=== PATIENT | male | born 1940 | race Caucasian/White ===

== ENCOUNTER 2017-01-29 09:33 | Day surgery (SDC) | payer MEDICARE, OTHER ==
--- NOTE | ~2017-01-29 | EGD ---
EGD REPORT [facility] [address] [place] [address] NAME: BUTCH PELAEZ : [birth year] STATUS : [facility]#: [id number] AGE: 76 ADM/REG DATE : 01/29/17 MR#: [id number] REPORT SERV DATE: 01/29/17 DICTATED BY: DATE: REPORT STATUS : Draft TRANSCRIBED BY: [facility] DATE: 01/29/17 [facility] Patient Name: Butch Pelaez Date of : 1940 Attending MD: WINNIE BATEMAN MD Procedure Date No Time: 01/29/2017 Procedure: Colonoscopy Indications: High risk colon cancer surveillance: Personal history adenoma >= 10 mm in size, High risk colon CA surveillance: Personal history multiple (3 or more) adenomas Referring MD: WALLY WELCH MD Medicines: Monitored Anesthesia Care Complications: No immediate complications. Procedure: Pre-Anesthesia Assessment: - ASA Grade Assessment: II - A patient with mild systemic disease. After I obtained informed consent, the scope was passed under direct vision. Throughout the procedure, the patient's blood pressure, pulse, and oxygen saturations were monitored continuously. The [facility] [id number] was introduced through the anus and advanced to the cecum, identified by appendiceal orifice and ileocecal valve. The colonoscopy was performed without difficulty. The patient tolerated the procedure well. The quality of the bowel preparation was good. Findings: The perianal and digital rectal examinations were normal. Multiple small and large-mouthed diverticula were found in the sigmoid colon. A sessile polyp was found in the cecum. The polyp was 10 mm in size and was localized near the appendix, tightly behind the IC valve. The polyp was removed with a cold snare. Resection and retrieval were complete using a submersion technique. I obtained cold biopsies from the margin to assess complete resection. Two sessile polyps were found in the ascending colon and in the cecum. The polyps were diminutive in size. These polyps were removed with a cold biopsy forceps. Resection and retrieval were complete. Two sessile polyps were found at the hepatic flexure. The polyps were diminutive in size. These polyps were removed with a cold biopsy forceps. Resection and retrieval were complete. A sessile polyp was found in the distal transverse colon. The polyp was small in size. The polyp was removed with a cold snare. Resection and retrieval were complete. EGD REPORT [address] [address] NAME: BUTCH PELAEZ : [birth year] STATUS : [facility]#: [id number] AGE: 76 ADM/REG DATE : 01/29/17 MR#: [id number] REPORT SERV DATE: 01/29/17 DICTATED BY: DATE: REPORT STATUS : Draft TRANSCRIBED BY: [employer] DATE: 01/29/17 No other significant abnormalities were identified in a careful examination of the remainder of the colon. There is no endoscopic evidence of inflammation, mass, ulcerations or angioectasia in the entire colon. No additional abnormalities were found on retroflexion. Impression: - Diverticulosis in the sigmoid colon. - One 10 mm polyp in the cecum. Resected and retrieved. - Two diminutive polyps in the ascending colon and in the cecum. Resected and retrieved. - Two diminutive polyps at the hepatic flexure. Resected and retrieved. - One small polyp in the distal transverse colon. Resected and retrieved. Recommendation: - Patient has a contact number available for emergencies. The signs and symptoms of potential delayed complications were discussed with the patient. Return to normal activities tomorrow. Written discharge instructions were provided to the patient. - High fiber diet. - Discharge patient to home. - Continue present medications. - Await pathology results. - Repeat colonoscopy in 2 years for surveillance. Procedure Code(s): --- Professional --- 65109, Colonoscopy, flexible, proximal to splenic flexure; with removal of tumor(s), polyp(s), or other lesion(s) by snare technique 38559, 59, Colonoscopy, flexible, proximal to splenic flexure; with biopsy, single or multiple Diagnosis Code(s): --- Professional --- K57.30, Diverticulosis of large intestine without perforation or abscess without bleeding D12.3, Benign neoplasm of transverse colon D12.2, Benign neoplasm of ascending colon D12.0, Benign neoplasm of cecum Z86.010, Personal history of colonic polyps CPT copyright 2013 [employer]. All rights reserved. The codes documented in this report are preliminary and upon facility practice specialist review may be revised to meet current compliance requirements. EGD REPORT [facility] [address] [address] NAME: BUTCH PELAEZ : [birth year] STATUS : REG [facility] PAT#: [id number] AGE: 76 ADM/REG DATE : 01/29/17 MR#: [id number] REPORT SERV DATE: 01/29/17 DICTATED BY: DATE: REPORT STATUS : Draft TRANSCRIBED BY: [employer] DATE: 01/29/17 WINNIE BATEMAN MD 01/29/2017 12:51 PM This report has been signed electronically. Number of Addenda: 0 Note Initiated On: 01/29/2017 11:36 AM Scope Withdrawal Time 0 hours 34 minutes 11 seconds [address] [id number]
[~2017-01-29 09:33] MED LIST: ASAB PO; CELEBREX2 PO; FLOMAX4 PO; IRON; JALYN 0.5-0.41 EACH PO; LIPITOR10 PO; MAG OXIDE250 MG PO; MULTIPLE VIT PO; NEXIUM40 PO; OMEGA-3 KRILL PO; OTC IRON PO; REG PO; TYLENOL ARTH650 MG PO; VITAMIN D31000 UNIT PO; [UNRECOGNIZED DRUG - MIXTURE] PO; [UNRECOGNIZED DRUG - OTHER] PO; [UNRECOGNIZED DRUG - OTHER] PO
== END 2017-01-29 23:59 | disposition home or self-care (01) ==
LOC: DMU 09:33
PROVIDERS: Internal Medicine Gastroenterology
PROC: 0DBH8ZZ Excision of Cecum, Via Natural or Artificial Opening Endoscopic (ICD-10-PCS; 2017-01-29)
PROC: 0DBK8ZZ Excision of Ascending Colon, Via Natural or Artificial Opening Endoscopic (ICD-10-PCS; principal; 2017-01-29 11:30)
PROC: 0DBL8ZZ Excision of Transverse Colon, Via Natural or Artificial Opening Endoscopic (ICD-10-PCS; 2017-01-29 11:30)
DX: Z12.11 Encounter for screening for malignant neoplasm of colon (principal); D12.1 Benign neoplasm of appendix; D12.2 Benign neoplasm of ascending colon; D12.3 Benign neoplasm of transverse colon; K57.30 Diverticulosis of large intestine without perforation or abscess without bleeding; Z86.010 Personal history of colon polyps; I10 Essential (primary) hypertension; K21.9 Gastro-esophageal reflux disease without esophagitis; E66.01 Morbid (severe) obesity due to excess calories; Z79.82 Long term (current) use of aspirin; Z79.899 Other long term (current) drug therapy; Z87.891 Personal history of nicotine dependence; Z96.652 Presence of left artificial knee joint; Z98.890 Other specified postprocedural states
CPT/HCPCS: 88305